=== PATIENT | female | born 1930 | race Caucasian/White ===

== ENCOUNTER → 2017-06-01 | Outpatient (CLI) | payer MEDICARE, BC ==
[~2017-06-01] MED LIST: AMLO2.5T PO; CALC1TAB12 PO; CALC600T5 PO; ELIT100T2 PO; JANT3TAB PO; JANT4TAB PO; MAGN250T11 PO; MULTTAB67 PO; PRAV20TA2 PO; SERT-132 PO; SOTA80TA PO; SYST0.4D2 EACH EYE; SYSTSOL EACH EYE; SYSTSOL9 EACH EYE; TRIA1SPR6 EACH NARE; TYLE325T PO; WARF-20 PO; WARF-58 PO; ZANTTAB PO
[2017-06-01 13:38] LABS: AUTOMATED NEUTROPHIL # 4.1 TH/MM3 (1.8-7.7); BASOPHIL % 0.5 % (0.0-2.0); EOSINOPHIL # 0.1 TH/MM3 (0-0.4); EOSINOPHIL % 1.7 % (0.0-4.0); HEMATOCRIT 45.6 % (35.0-46.0); HEMO FLAGS DIFF FINAL; LYMPH % 26.8 % (9.0-44.0); LYMPHOCYTE # 1.8 TH/MM3 (1.0-4.8); MEAN CELL VOLUME 94.8 FL (80.0-100.0); MEAN CORPUSCULAR HEMOGLOBIN 32.5 PG (27.0-34.0); MEAN CORPUSCULAR HGB CONC 34.3 % (32.0-36.0); MONO % 11.4 % (0.0-8.0); NEUT % 59.6 % (16.0-70.0); PLATELET COUNT 186 TH/MM3 (150-450); RED BLOOD COUNT 4.81 MIL/MM3 (4.00-5.30); RED CELL DISTRIBUTION WIDTH 13.4 % (11.6-17.2); WHITE BLOOD COUNT 6.8 TH/MM3 (4.0-11.0)
[2017-06-01 13:48] LABS: BLOOD, URINE NEG (NEG); COMMENT (UR) CULT NOT INDICATED; CULTURE IF INDICATED CULT NOT INDICATED; GLUCOSE,URINE NEG (NEG); KETONE, URINE NEG (NEG); MUCUS URINE FEW /lpf (OCC); NITRITE,URINE NEG (NEG); URINE COLOR LIGHT-YELLOW (YELLW/STRAW)
--- NOTE | 2017-06-04 11:34 | EKG ---
Date Performed: 06/01/2017 Time Performed: 13:19:21 PTAGE: 86 years EKG: SINUS BRADYCARDIA BORDERLINE ECG PREVIOUS TRACING : 12/09/2001 06.43 Compared to previous tracing, anterior T wave inversion has resolved, possible inferior infarct pattern is no longer evident. DOCTOR: Jeff Castro Interpretating Date/Time 06/04/2017 11:33:48
== END ==
LOC: CPRE 12:42
PROVIDERS: ATTEND Obstetrics & Gynecology
DX: Z01.812 Encounter for preprocedural laboratory examination (principal); Z01.810 Encounter for preprocedural cardiovascular examination; N95.0 Postmenopausal bleeding; N85.00 Endometrial hyperplasia, unspecified; R94.31 Abnormal electrocardiogram [ECG] [EKG]
CPT/HCPCS: 36415; 81001; 85025; 93005

== ENCOUNTER → 2017-06-05 | Day surgery (SDC) | payer MEDICARE, BC ==
--- NOTE | 2017-06-04 14:37 | MH ---
cc: LESLY GARRETT DATE OF ADMISSION: 06/05/2017 ADMITTING DIAGNOSIS Postmenopausal bleeding. HISTORY OF PRESENT ILLNESS An 86-year-old single white female, para 3-0-0-2, who presented for evaluation in March 2017 with a 3-4 month history of painless vaginal bleeding. Her Pap smear was normal. Her vaginal ultrasound showed the uterus measured 5.9 cm, endometrium 5 mm with some fluid. She is now admitted for surgical evaluation. PAST MEDICAL HISTORY PREVIOUS SURGERY 1. 1935 tonsils. 2. 1963 gallbladder removal. 3. 2002 colon, laparotomy exploration. 4. 2014 cataract. MEDICATIONS 1. Sotalol. 2. Sertraline. 3. Systane. 4. Amlodipine. 5. Pravastatin. 6. Vitamins. ALLERGIES DOXYCYCLINE. SERIOUS MEDICAL ILLNESSES 1. Hypertension. 2. High cholesterol. TRANSFUSIONS None. OB HISTORY Three vaginal deliveries. Two surviving children. SOCIAL HISTORY Retired. . Alcohol, tobacco and drugs are none. FAMILY HISTORY Pertinent for mom who had cervical cancer. PHYSICAL EXAMINATION GENERAL: A well-nourished, elderly white female. HEENT: Normal. CHEST: Clear. HEART: Regular rate. BREASTS: Symmetrical. ABDOMEN: Benign. PELVIC: Normal external genitalia and BUS. Vagina is atrophic. Cervix is small. Uterus normal size, shape, anterior, with no adnexal masses. ASSESSMENT Postmenopausal bleeding. PLAN She is now admitted for outpatient hysteroscopy and D&C. While in the office I explained the procedures, the risks, benefits and complications and the patient elected to proceed. MD BRIAN Nazario/[place] /2:26 PM /2:34 PM
[~2017-06-05] VITALS: Ht 162.6 cm; Wt 62.6 kg
[~2017-06-05] MED LIST changes: +*RESP: ALBUTEROL 2.5 MG/3 ML NEB (PRN) PERIprocedural Use ONLY NEB ONE; +ACETAMINOPHEN 1000 MG/100 ML 100 ML IV ONE; +ACETAMINOPHEN 1000 MG/100 ML 100 ML IV SCH; +BACITRACIN TOP OINT 15 GM TUBE ONE; -CALC600T5 PO; +CHLORHEXIDINE GLUCONATE 2 % 1 PACK (2 CLOTHS) TOPICAL PRN; +DEXAMETHASONE SOD PHOS 4 MG/ML VIAL IV ONE; +DO NOT ADM ANY ANTICOAGULANT DRUGS PRN; -ELIT100T2 PO; +INSULIN HUMAN REGULAR 1,000 UNITS/10 ML VIAL SQ PRN; +LACTATED RINGER'S 1000 ML IV PRN; +LIDOCAINE 1%/EPINEPHrine 1:100,000 SOLN 20 ML VIAL ONE; +LIDOCAINE HCL 1% 50 ML VIAL ONE; +LIDOCAINE HCL 1% PF 5 ML SYRINGE OTHER ONE; +METOCLOPRAMIDE HCL 10 MG/2 ML VIAL IV PRN; +METOPROLOL TARTRATE 25 MG TAB PO PRN; +MIDAZOLAM HCL 2 MG/2 ML VIAL IV ONE; +NEOMYCIN/POLYMYXIN/BACITRACIN OINT 15 GM TUBE ONE; +ONDANSETRON HCL 4 MG/2 ML VIAL IV PUSH ONE; +OXYTOCIN 10 UNIT/ML AMP ONE; +POVIDONE IODINE 5% (ANTISEPSIS KIT) 4 APPLICATIONS EACH NARE PRN; +PROPOFOL 200 MG/20 ML AMP IV ONE; +SODIUM CHLOR 0.9% 1000 ML INJ 1,000 ML ONE; +SODIUM CHLORID 0.9% 500 ML IV PRN; -SYSTSOL9 EACH EYE; -WARF-20 PO; -WARF-58 PO; +ceFAZolin 1,000 MG/NS 100 ML IV SCH; +ceFAZolin INJ 1,000 MG VIAL ONE
--- NOTE | 2017-06-05 08:53 | MP ---
cc: LESLY GARRETT DATE OF SURGERY 06/05/2017 PREOPERATIVE DIAGNOSIS Postmenopausal bleeding POSTOPERATIVE DIAGNOSIS Postmenopausal bleeding with endometrial polyps. PROCEDURE Hysteroscopy, D&C. ANESTHESIA General ESTIMATED BLOOD LOSS Less than 5 cc FLUIDS About 300 cc of crystalloid. OBJECTIVE FINDINGS Following induction of adequate general anesthesia, the patient was prepped and draped supine on the operating table in the dorsolithotomy position in the usual sterile fashion with the bladder being drained via in and out catheterization. Exam under anesthesia revealed a normal sized, shape anterior uterus with no adnexal masses. Cervix exposed with handheld retractors. The anterior lip of the cervix grasped with a single toothed tenaculum. The cervix and uterus sounded to 7 cm with a soft dilator, suction dilator #19 Hanks dilator. The hysteroscope was passed revealing a normal endocervix, endometrium was at least two polyps. The scope was removed. Endocervical curettings obtained with a small curette. The polyps were removed with polyp forceps and the cavity curetted with a small sharp curette. The cervix tenaculum sites sutured with 3-0 chromic with good hemostasis. All instruments removed. All counts correct. The patient's legs taken out of the stirrups. She was awakened and taken to the Recovery Room in good condition. MD BRIAN Nazario/[place] /8:05 AM /8:51 AM
[2017-06-05 10:02] VITALS: BP 151/70; PULSE 55; RESP 16; TEMP 97; O2SAT 95
== END | disposition home or self-care (01) ==
LOC: HSDC 05:09
PROVIDERS: ATTEND Obstetrics & Gynecology
DX: N84.0 Polyp of corpus uteri (principal); N95.0 Postmenopausal bleeding; I10 Essential (primary) hypertension
CPT/HCPCS: 00952; 58558; 88305; 94664; J0131; J0690; J1100; J2250; J2405; J3010; J7030; J7120; J7613; J2590